=== PATIENT | male | born 2000 | race Caucasian/White ===

== ENCOUNTER 2018-12-12 11:41 | Emergency (ER) | payer MEDICAID ==
[~2018-12-12] VITALS: Ht 175.3 cm; Wt 59.0 kg
[2018-12-12 12:22] VITALS: BP 132/81
== END 2018-12-12 12:46 | disposition left against medical advice (07) ==
LOC: ER 11:55
DX: Z53.21 Procedure and treatment not carried out due to patient leaving prior to being seen by health care provider (principal)